=== PATIENT | female | born 1960 | race Caucasian/White ===

== ENCOUNTER → 2020-10-31 | Outpatient (CLI) | payer MEDICARE | LOC: M PAIN 15:00 | PROVIDERS: ATTEND Family Medicine | DX: Z53.29 Procedure and treatment not carried out because of patient's decision for other reasons (principal) ==

== ENCOUNTER → 2020-11-01 | Outpatient (CLI) | payer MEDICARE ==
--- NOTE | 2020-12-20 03:17 | ECWPNPC ---
PATIENT NAME: MARIA G LUCAS : 1960 GENDER: FEMALE VISIT DATE: 11/01/2020 DISCHARGE DATE: 11/01/20840 VISIT LOCKED DATE TIME: PHYSICIAN: SAMIRA BARTON RESOURCE: SAMIRA BARTON REASON FOR APPOINTMENT 1. BACK PAIN HISTORY OF PRESENT ILLNESS PAIN CENTER INTAKE QUESTIONS: [facility] TELEHEALTH VISIT. 60-YEAR-OLD FEMALE IN FOR CONSULT REGARDING CURRENT PAIN MANAGEMENT REGIMEN. PATIENT WAS ON [place] AND SHE STATES THAT SHE PREFERS TO GO BACK TO THE TRAMADOL THAT WAS MORE BENEFICIAL. SHE ADMITS THAT DR. SABA STARTED HER ON TRAMADOL YESTERDAY AND SHE IS CURRENTLY TAKING 100 MG OF GABAPENTIN 3 TIMES DAILY. GENERAL: -. FALL RISK SCREENING: SCREENING : TWO OR MORE FALLS WITHOUT INJURY IN THE PAST YEAR PATIENT FELL TWICE AND WENT TO [facility] FOR CARE.. PAIN SCREENING: PATIENT HAS A COMPLAINT OF ACUTE OR CHRONIC PAIN :YES LOCATION OF PAIN:LOW BACK, OTHER: LOWER RIGHT CALF INTENSITY OF PAIN (SCALE OF 1 TO 10):7 WHAT DOES YOUR PAIN FEEL LIKE:ACHING, CONTINOUS DURATION:CONTINOUS, CONSTANT, ALL DAY, AWAKENS FROM SLEEP PAIN IS INCREASED BY:ACTIVITIES, OTHERS HOUSEWORK PAIN IS DECREASED BY:USE OF PAIN MEDICATIONS TRAMADOL TREATMENT/MEDICATIONS USED TO MANAGE PAIN: TRAMADOL LEVEL OF RELIEF FROM PAIN TREATMENTS IN THE PAST:50% NURSING NOTE: -. CURRENT MEDICATIONS TAKING QUETIAPINE FUMARATE 200 MG TABLET 800 MG 1 TABLET AT BEDTIME ORALLY ONCE A DAY TAKING CLONAZEPAM 0.5 MG TABLET 1 TABLET AT BEDTIME ORALLY ONCE A DAY TAKING SIMVASTATIN 20 MG TABLET 1 TABLET IN THE EVENING ORALLY ONCE A DAY TAKING BIOTIN 10 MG TABLET 1 TABLET ORALLY ONCE A DAY TAKING VITAMIN D 50 MCG (2000 UT) TABLET 1 TABLET ORALLY ONCE A DAY NOT-TAKING BACITRACIN 500 UNIT/GM OINTMENT 1 APPLICATION EXTERNALLY ONCE A DAY NOT-TAKING TYLENOL 8 HOUR 650 MG TABLET EXTENDED RELEASE 2 TABLETS NEEDED ORALLY EVERY 8 HRS NOT-TAKING HYDROCODONE-ACETAMINOPHEN 5-325 MG TABLET 1 TABLET NEEDED ORALLY EVERY 6 HRS MEDICATION LIST REVIEWED AND RECONCILED WITH THE PATIENT PAST MEDICAL HISTORY HYPERTENSION HYPERLIPIDEMIA COPD MAINC BIPOLAR DISORDER MIGRAINE ISOLATED SEIZURES STATUS POST COLON RESECTION CARPAL TUNNEL SYNDROME LESION OF SKIN IRRITABLE BOWEL SYNDROME WITH DIARRHEA CRAMP OF MUSCLE OF BOTH LOWER LIMBS ACUTE SINUSITIS PAIN IN LEFT HIP LUMBAR PAIN LOWER BACK PAIN 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 LUMBAR SPINAL STENOSIS HERIATED LUMBAR DISC LUMBER DISC DEGENERATIVE DISEASE URINARY SYMPTOMS EXPOSURE TO MOLD COLITS ALLERGIES ASPIRIN: VOMITING - SIDE EFFECTS POLLEN DUST: SNEEZING - ALLERGY SOCIAL HISTORY GENERAL: TOBACCO USE ARE YOU A:CURRENT SMOKER HOW MANY CIGARETTES A DAY DO YOU SMOKE?5 OR LESS ARE YOU INTERESTED IN QUITTING?READY TO QUIT LATEX QUESTIONNAIRE LATEX ALLERGY : HAVE YOU EVER DEVELOPED ANY TYPE OF REACTION AFTER HANDLING LATEX PRODUCTS SUCH RUBBER GLOVES, CONDOMS, DIAPHRAGMS, BALLOONS, SOCKS, OR UNDERWEAR?NO LATEX ALLERGY : HAVE YOU EVER DEVELOPED ANY TYPE OF REACTION DURING OR AFTER DENTAL APPOINTMENT, VAGINAL/RECTAL EXAMINATION, SURGICAL PROCEDURE, OR ANY OTHER EXPOSURE?NO LATEX RISK : HAVE YOU EVER HAD ANY DIFFICULTY BREATHING OR HIVES AFTER EATING OR HANDLING ANY FRUITS, OR VEGETABLES; SUCH KIWI, BANANAS, STONE FRUITS, OR CHESTNUTSNO LATEX RISK : DO YOU HAVE A PREVIOUS PERSONAL HISTORY OF MORE THAN NINE SURGERIES, SPINA BIFIDA, OR REPEATED CATHERIZATIONS? 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 CHILLS NO . WEIGHT CHANGE OF UNKNOWN REASONS NO . GASTROENTEROLOGY: NEW UNEXPLAINABLE CHANGES IN BOWEL CONTROL NO . CONSTIPATION NO . GENITOURINARY: ANY NEW CHANGE IN BLADDER CONTROL? NO . NEUROLOGY: NEW ONSET DIZZINESS OR NEUROLOGICAL CHANGES NOT MENTIONED NO . NEW NUMBNESS OR PAIN PATTERNS NOT MENTIONED AND PERTINENT TO TODAY'S VISIT NO . CARDIOLOGY: NEW CHEST PRESSURE NO . PATIENT DENIES NO . RESPIRATORY: UNEXPLAINABLE COUGH NO . NEW SHORTNESS OF BREATH NO . VITAL SIGNS WT 126 LBS, WT-KG 0 KG, HT 63.5 IN, BMI 21.97 INDEX, BP 0 MM HG, REPEAT BP 0 MM HG, HR 0 /MIN, RR 0 /MIN, TEMP 0 F, OXYGEN SAT % 0, BLOOD GLUCOSE LEVEL 0, SAFE IN ENV? (Y/N) YES, REVIEWED BY: JHUNABLE TO OBTAIN VITALS DUE TO VIRTUAL VISIT. LISA ASTORGA MA. EXAMINATION GENERAL EXAMINATION: GENERALNO ACUTE DISTRESS, WELL NOURISHED AND HYDRATED. PSYCHAPPROPRIATE MOOD AND AFFECT . ASSESSMENTS DORSALGIA, UNSPECIFIED - M54.9 (PRIMARY) TREATMENT DORSALGIA, UNSPECIFIED NOTES: 60-YEAR-OLD FEMALE IN FOR CONSULT REGARDING CURRENT PAIN MEDICATION REGIMEN. GIVEN PRESENTING SYMPTOMS RECOMMEND CONTINUING WITH CURRENT TRAMADOL DOSING AND INCREASING GABAPENTIN TO 300 MG 3 TIMES A DAY. PATIENT HAS EXPRESSED UNDERSTANDING OF AND WAS IN AGREEMENT WITH TREATMENT PLAN. GIVEN TIME TO ASK QUESTIONS AND EXPRESS CONCERNS. DISPOSITION & COMMUNICATION FOLLOW UP WITH DR. JAYANT HOWELL (REASON: BACK PAIN) ELECTRONICALLY SIGNED BY MIGUE MEDEL ON 12/19/2020 AT 08:44 AM EST DISCLAIMER : THIS IS A VISIT SUMMARY EXTRACTED FROM THE [employer] CHART. IT IS NOT A COPY OF THE [employer] PROGRESS NOTE. LINUS
== END ==
LOC: M PAIN 15:00
PROVIDERS: ATTEND Family Medicine
DX: M54.5 Low back pain (principal); I10 Essential (primary) hypertension; E78.5 Hyperlipidemia, unspecified; J44.9 Chronic obstructive pulmonary disease, unspecified; K58.0 Irritable bowel syndrome with diarrhea; F17.210 Nicotine dependence, cigarettes, uncomplicated; Z79.899 Other long term (current) drug therapy; Z88.6 Allergy status to analgesic agent; J30.1 Allergic rhinitis due to pollen

== ENCOUNTER → 2022-01-03 | Outpatient (CLI) | payer MEDICARE ==
[~2022-01-03] MED LIST: CLON0.5T2; DIVA500T9
== END ==
LOC: M ONCR 09:23
PROVIDERS: ATTEND General Practice
DX: R91.1 Solitary pulmonary nodule (principal); F17.210 Nicotine dependence, cigarettes, uncomplicated; J44.9 Chronic obstructive pulmonary disease, unspecified; R05.9 Cough, unspecified; R06.09 Other forms of dyspnea

== ENCOUNTER 2022-02-04 11:49 | Outpatient (RCR) | payer MEDICARE ==
[~2022-02-04 11:49] MED LIST changes: +LORA1TAB4 PO; +PERCOCET PO
== END 2022-02-09 ==
LOC: M ONCR 11:49
PROVIDERS: ATTEND General Practice
DX: C34.31 Malignant neoplasm of lower lobe, right bronchus or lung (principal)

== ENCOUNTER → 2022-04-23 | Outpatient (CLI) | payer MEDICARE ==
[~2022-04-23] VITALS: Ht 160 cm; Wt 46.3 kg
[2022-04-23 13:18] VITALS: BP 106/66
== END ==
LOC: M PAL 13:04
PROVIDERS: ATTEND Nurse Practitioner Adult Health
DX: R05.9 Cough, unspecified (principal); R06.02 Shortness of breath; R63.4 Abnormal weight loss; F17.210 Nicotine dependence, cigarettes, uncomplicated; R10.13 Epigastric pain; J44.9 Chronic obstructive pulmonary disease, unspecified; M25.562 Pain in left knee; M54.9 Dorsalgia, unspecified; G89.29 Other chronic pain; R63.0 Anorexia; K58.9 Irritable bowel syndrome, unspecified; F41.9 Anxiety disorder, unspecified; K59.00 Constipation, unspecified; Z88.6 Allergy status to analgesic agent; Z79.891 Long term (current) use of opiate analgesic; Z85.118 Personal history of other malignant neoplasm of bronchus and lung; Z92.3 Personal history of irradiation

== ENCOUNTER → 2022-05-01 | Outpatient (CLI) | payer MEDICARE | LOC: M ONCR 11:16 | PROVIDERS: ATTEND Dietitian, Registered | DX: R91.1 Solitary pulmonary nodule (principal); R53.83 Other fatigue; G89.29 Other chronic pain; M79.605 Pain in left leg; M79.604 Pain in right leg; F17.200 Nicotine dependence, unspecified, uncomplicated; Z92.3 Personal history of irradiation ==

== ENCOUNTER → 2022-05-01 | Outpatient (CLI) | payer MEDICARE ==
[~2022-05-01] MED LIST changes: +HYDR-3715 PO
== END ==
LOC: M ONCR 14:11
PROVIDERS: ATTEND General Practice
DX: R91.1 Solitary pulmonary nodule (principal); F17.210 Nicotine dependence, cigarettes, uncomplicated; G89.29 Other chronic pain; J44.9 Chronic obstructive pulmonary disease, unspecified; M79.604 Pain in right leg; M79.605 Pain in left leg; Z92.3 Personal history of irradiation; Z88.6 Allergy status to analgesic agent

== ENCOUNTER → 2022-05-08 | Outpatient (CLI) | payer MEDICARE ==
[~2022-05-08] MED LIST changes: -HYDR-3715 PO; +ISOVUE-370 76% 100ML VIAL As Ordered ONE
== END ==
LOC: M RAD 15:53
PROVIDERS: ATTEND General Practice
DX: C34.31 Malignant neoplasm of lower lobe, right bronchus or lung (principal); E27.9 Disorder of adrenal gland, unspecified
CPT/HCPCS: 71260; Q9967

== ENCOUNTER → 2022-06-13 | Outpatient (CLI) | payer MEDICARE ==
[~2022-06-13] VITALS: Ht 152.4 cm; Wt 46.0 kg
[~2022-06-13] MED LIST changes: +HYDR-3713 PO; +HYDR-3715 PO; -ISOVUE-370 76% 100ML VIAL As Ordered ONE
[2022-06-13 14:13] VITALS: BP 132/79
== END ==
LOC: M PAL 13:52
PROVIDERS: ATTEND Nurse Practitioner Adult Health
DX: J44.9 Chronic obstructive pulmonary disease, unspecified (principal); Z85.118 Personal history of other malignant neoplasm of bronchus and lung; F41.9 Anxiety disorder, unspecified; K58.9 Irritable bowel syndrome, unspecified; G89.29 Other chronic pain; M25.562 Pain in left knee; M54.2 Cervicalgia; K59.00 Constipation, unspecified; R63.0 Anorexia; Z51.5 Encounter for palliative care; Z88.6 Allergy status to analgesic agent; Z92.3 Personal history of irradiation; Z79.891 Long term (current) use of opiate analgesic; R05.3 Chronic cough; F17.210 Nicotine dependence, cigarettes, uncomplicated; R10.13 Epigastric pain; E78.5 Hyperlipidemia, unspecified; R63.4 Abnormal weight loss